=== PATIENT | male | born 1955 | race Two or more races ===

== ENCOUNTER 2016-07-03 11:00 | Inpatient (IN) | payer MEDICAID ==
[~2016-07-03] VITALS: Ht 170.2 cm; Wt 132.2 kg
--- NOTE | ~2016-07-03 | CATH ---
Cardiac Diagnostic Report Demographics Patient Name ROBERT Zhao Gender Male Date of 1955 Age 60 year(s) Patient Number [id number] Date of Study 07/04/2016 Visit Number [id number] Room Number G6[address] [place] [id number] Ht 170.18 cm Wt 137.6 kg Referring Efstratiou Primary Physician Physician Rodney Mayfield MD Performing Efstratiou Secondary Physician Physician Rodney Mayfield MD Diagnostic Efstratiou Assisting Physician Physician Rodney Mayfield MD Interventional Physician Crushing Foreman Physician Findings and Conclusions Diagnostic Findings and Conclusion Patent grafts Occluded [place] vessels Severe cardiomyopathy Moderate pulmonary hypertension Markedly elevated wedge EF 10-15% . Markedly dilated LV Diagnostic Recommendations Medical therapy Lifevest/ICD Procedure Description The patient was brought to the diagnostic cardiac catheterization-EP laboratory in the fasting, non-sedated state. Informed consent was obtained in the written and verbal form after the risks and benefits were explained. The patient had no further questions and agreed to proceed. The planned puncture-incision site(s) were shaved and prepped with ChloraPrep and draped in the usual sterile manner. Conscious sedation, supplemental oxygen, and pain control medications were delivered by a registered nurse under physician guidance. Surface ECG rhythm, blood pressure measurement, and pulse oximetry were monitored throughout the procedure. Arterial access. The access site was infiltrated with lidocaine. The vessel was entered with the Seldinger technique. A sheath was advanced into the vessel and used for catheter placement. Selective left coronary angiography. A catheter was advanced into the left coronary vessel ostium under Fluoroscopic guidance. Contrast was injected by hand. Images were obtained in multiple projections. Selective right coronary angiography. A catheter was advanced into the right coronary vessel ostium under fluoroscopic guidance. Contrast was injected by hand. Images were obtained in multiple projections. Selective LAW graft angiography. A catheter was advanced into the left internal mammary graft ostium under fluoroscopic guidance. Contrast was injected by hand. Images were obtained in multiple projections. Selective SVG angiography. A catheter was advanced into the graft proximal anastomosis under fluoroscopic guidance. Contrast was injected by hand. Images were obtained in multiple projections. Left heart catheterization with ventriculography. A catheter was advanced across the aortic valve to the left ventricle under fluoroscopic guidance. Resting hemodynamics were obtained. With the catheter at the left ventricular apex, contrast was injected. Images were obtained in TURKISH projections. Post-ventriculography LV pressure was obtained. The catheter was gradually withdrawn into the aorta with continuous pressure recording. Arterial artery hemostasis. Hemostasis was achieved. The patient was transferred to a regular nursing floor via cart accompanied by a nurse. The patient left the laboratory in stable condition. Diagnostic Cath Status: Urgent Procedure Procedure Type Diagnostic procedure:Ventriculogram:, Left, Angiography:, Coronary Angios, RHC/LHC w/Grafts Indications: New onset CHF and History of CABG. The procedure was explained in detail to the patient. Risks, complications and alternative treatments were reviewed. Written consent was obtained. Medications Reviewed with Patient prior to Procedure. Angiographic Findings Dominance: Right Cardiac Arteries and Lesion Findings LMCA: Abnormal. Lesion on LMCA: Proximal subsection.20% stenosis . LAD: Abnormal. Lesion on Prox LAD: Ostial.100% stenosis . LCx: Abnormal. Lesion on Prox CX: 95% stenosis . RCA: Abnormal. Lesion on Prox RCA: Distal subsection.100% stenosis . Cardiac Grafts - There is a Vein graft that originates at the Aorta Right and attaches to the R PDA (The SVG graft is patent. Fills PLB as well). - There is a Vein graft that originates at the Aorta Left and attaches to the 1st Ob Renetta (The SVG graft is patent. Fills whole circumflex system.). - There is a Vein graft that originates at the Aorta Left and attaches to the 1st Diag (The SVG graft is occluded.). - There is a LAW graft that originates at the LAW and attaches to the Mid LAD (The LAW graft is patent.). Coronary Tree Procedure Data Procedure Date Date: 07/04/2016Start: 09:09 AMEnd: 10:05 AM Entry Locations - Antegrade Percutaneous access was performed through the Right Femoral vein. A 6 Fr sheath was inserted. Hemostasis was successfully obtained using Manual Compression. Closure Comments: ty. - Retrograde Percutaneous access was performed through the Right Femoral artery (Primary location). A 6 Fr sheath was inserted. Hemostasis was successfully obtained using Angio-Seal STS PLUS (St. Cirilo). Closure Comments: DR. Carballo placed. Procedure Medications Order and Administration + + +-------+------+ !Time !Medication !Dosage !Route ! + + +-------+------+ !07/04/2016 09:09 AM !Fentanyl !25 mcg !I.V. ! + + +-------+------+ !07/04/2016 09:19 AM !Versed !0.5 mg !I.V. ! + + +-------+------+ Devices Used - A6 Fr. Balloon Wedge Catheterwas used for:Right heart cath. - A6 Fr. BS JL 3.5 Diag. Catheterwas used for:Left coronary angiography. - A6 Fr. BS JR 4 Diag. Catheterwas used for:Right coronary angiography. - A6 Fr. BS IMT Diag. Catheterwas used for:LAW. - A6 Fr. BS Angled Pigtail Diag. Catheterwas used for:Left ventriculography. Contrast Material - Isovue [id number] ml Fluoroscopy Time: Diagnostic: 9:54 minutes. Total: 9:54 minutes. Fluoroscopy Dose: Diagnostic: 1755 mGy. Total: 1755 mGy. Estimated Blood Loss: 15 ml. Medical History Performed Procedures and Imaging Results - No ACC stress or imaging studies were performed. Allergies - Antibiotics:(ceftiaxone). Risk Factors The patient risk factors include: prior CABG on 09/12/2004;hypertension, family history of premature CAD, last creatinine: 1 mg/dl, creatinine clearance: 156.71 ml/min, dyslipidemia, former tobacco use and prior heart failure . Admission Data Admission Date: 07/03/2016 Admission Time: 11:35 AM Admit Source: [facility] Insurance Payors: None. Admission Medications + +------+------+ + + + + !Medication !Dosage!Times !Last !Last !Administered !Comments ! ! ! !Per !Delivery !Delivery ! ! ! ! ! !Day !Date !Time ! ! ! + +------+------+ + + + + !Beta Shravan! ! ! ! !Yes ! ! !(any) ! ! ! ! ! ! ! + +------+------+ + + + + !Statin (any)! ! ! ! !Yes ! ! + +------+------+ + + + + !JENNIFER ! ! ! ! !Yes ! ! !Inhibitor ! ! ! ! ! ! ! !(any) ! ! ! ! ! ! ! + +------+------+ + + + + Clinical Evaluation Leading to Procedure - There were no CAD presentation symptoms. - There were no anginal symptoms. Anti-anginal medications were prescribed during the past two weeks. The medication is: Beta Blockers. - The patient has been in a state of heart failure within the past two weeks. - The patient's heart failure status was assessed as NYHA Class IV, with CHF symptoms of BERNAL. - The reason for the patient's technology lab teacher visit is evaluation of cardiomyopathy and/or evaluation of left ventricular systolic dysfunction. Snapshots Hemodynamics Condition: Rest O2 Consumption: Estimated: 293.85Heart Rate: 81 bpm Oxygen Saturation +--------+-----+----+ +---+ + !Location!pCO2 !pO2 !% Saturation !Hgb!O2 Content ! +--------+-----+----+ +---+ + !RA ! ! !61.2 ! ! ! +--------+-----+----+ +---+ + !PA ! ! !62.8 ! ! ! +--------+-----+----+ +---+ + !AO ! ! !90.5 ! ! ! +--------+-----+----+ +---+ + Pressures (mmHg) +-----+ + !Site !Pressure ! +-----+ + !RA !10/02 (7) ! +-----+ + !RV !46/3 ,7 ! +-----+ + !PCW ! (29) ! +-----+ + !PA !45/15 (27) ! +-----+ + !PA !49/21 (31) ! +-----+ + !PA !47/15 (29) ! +-----+ + !AO !125/80 (99) ! +-----+ + !AO !129/85 (104) ! +-----+ + !LV !131/8 ,41 ! +-----+ + !LV !136/2 ,26 ! +-----+ + !LV !127/4 ,21 ! +-----+ + !AO !129/79 (99) ! +-----+ + !LV !127/4 ,23 ! +-----+ + Cardiac Output +------+ + + + !Method!CO (l/min) !CI (l/min/m2) !SV (ml) ! +------+ + + + !Oly !5.24 !2.2 !64.98 ! +------+ + + + Valve Gradients and Areas + +--------+--------+--------+---------+ + + !Valve !Peak !Mean !Area !Index !Flow !Source ! + +--------+--------+--------+---------+ + + !Aortic !1 !0 ! ! !344.06 !Oly ! + +--------+--------+--------+---------+ + + !Aortic !1 !0 ! ! ! ! ! + +--------+--------+--------+---------+ + + Shunts Oxygen Values O2 Capacity 202.64 O2 Consumption 293.85 Flows (l/min) Qs 4.95 Qe/Qp 0.94 Qp 5.24 Qp/Qs 1.06 Qe 4.95 Vascular Resistance (dynes x sec x cm-5) + +-----+-----+----+---+---------+-------+ !CO method !TSVR !SVR !TPVR!PVR!TPVR/TSVR!PVR/SVR! + +-----+-----+----+---+---------+-------+ !Oly !18.93!17.51!5.53! !0.29 ! ! + +-----+-----+----+---+---------+-------+ !Qp or Qs !20.04!18.54!5.53! !0.28 ! ! + +-----+-----+----+---+---------+-------+ Signatures dtt: Mick Carballo dtd: 07/04/16 0909 Physician Self Edit
--- NOTE | ~2016-07-03 | DS ---
PATIENT'S NAME: EDMOND JONES [facility] AGE: 60 Y [address] ROOM: [address] [place], [place] [address] LOCATION: GPCU ADMIT DATE: 07/03/2016 Discharge Summary DISCHARGE DATE: 07/07/2016 FAMILY PHYSICIAN: Physician, Unknown ATTENDING PHYSICIAN: Mick Carballo PRIMARY DISCHARGE DIAGNOSIS: Nonsustained ventricular tachycardia. SECONDARY DISCHARGE DIAGNOSES: 1. Acute systolic congestive heart failure. 2. Severe cardiomyopathy. 3. Coronary artery disease with a history of coronary artery bypass grafting. PROCEDURES: Selective coronary angiography without need for percutaneous intervention along with right and left heart catheterization. HOSPITAL COURSE: This is a 60-year-old male who was transferred from [place], [place] with a nonsustained ventricular tachycardia. Please see history and physical for full details of admission. He was started on intensive medications including Lasix, beta-millie, JENNIFER inhibitor, and Lipitor due to him having no noted treatment after his coronary artery bypass grafting. Plan was to proceed with heart catheterization the following morning. On 07/04/2016, he underwent a selective coronary angiography without need for percutaneous intervention as well as a right and left heart catheterization. Please see the cath report for full details of findings. This procedure was performed through the right femoral artery as well as right venous access. After catheterization, he was transferred to the Progressive Care Unit for continued monitoring of his procedure site as well as postprocedure EKG and vital signs. An order was placed at that time for a LifeVest due to the newly decreased ejection fraction of 15-20% as well as his known history of NSVT. He was also started on Entresto 49/51 mg p.o. twice daily. On 07/05/2016, his right groin remained soft and he continued working with cardiac rehab. On 07/06/2016, continued to await coverage for LifeVest payment, but he continued to have stable hemodynamics with no recurrences of VT. On 07/07/2016, he was found to be in stable condition and discharged to home with a LifeVest in place. DIAGNOSTICS: Cardiac enzyme evaluation on admission showed a CPK of 312, CK- MB of 4.8, and troponin I of 0.185. Renal function remained with a GFR greater than 60 the entire hospitalization. Lipid evaluation showed a total cholesterol of 170, triglycerides 143, HDL of 37, and LDL of 28. DISCHARGE ORDERS: The patient is discharged to home with a cardiac diet of low fat, low salt, and low cholesterol. He does have a 10-pound weight PATIENT'S NAME: EDMOND JONES [facility] AGE: 60 Y [address] ROOM: [place] [address] LOCATION: GPCU ADMIT DATE: 07/03/2016 Discharge Summary DISCHARGE DATE: 07/07/2016 FAMILY PHYSICIAN: Physician, Unknown ATTENDING PHYSICIAN: Mick Carballo restriction for 1 week. He is to follow up with a primary care provider in 1 week after he establishes a primary care provider, which is of utmost importance. He is going to follow up with Dr. Carballo in [place] in 2 weeks with a BMP, magnesium, proBNP, and EKG. He is given post catheterization teaching and restrictions and is to follow at outpatient cardiac rehab. DISCHARGE MEDICATIONS: 1. Lipitor 80 mg p.o. daily at bedtime. 2. Coreg 12.5 mg p.o. twice daily. 3. Lasix 40 mg p.o. daily. 4. Levaquin 500 mg p.o. daily, to be ended on 07/09/2016. 5. Nicoderm patch 21 mg transdermally daily. 6. Protonix 40 mg p.o. daily. 7. Entresto 49/51 mg p.o. twice daily, the patient was given sample medications and discount card for Entresto. 8. Tylenol 1000 mg p.o. every 6 hours as needed for pain, not to exceed 4000 mg of Tylenol in 24-hour period. 9. Mylanta 20 mL p.o. every 6 hours as needed for GERD. 10. Albuterol sulfate inhaled 4 times daily. DISPOSITION: The patient is discharged to home in stable condition. He is given his discharge instructions including activity and diet restrictions as well as followup appointments, new medications, and prescriptions. MEAGAN MCGRATH APRN FOR MD [employer] NEVAREZ/capo /[id number] d: 07/14/16 0346 t: 07/17/16 1826, DISCHARGE SUMMARY
--- NOTE | ~2016-07-03 | HP ---
PATIENT'S NAME: EDMOND JONES [facility] AGE: 60 Y [address] ROOM: [place] [address] LOCATION: GPCU ADMIT DATE: 07/03/2016 History & Physical DISCHARGE DATE: FAMILY PHYSICIAN: PHYSICIAN, UNKNOWN ATTENDING PHYSICIAN: Mick Carballo DATE OF SERVICE: HISTORY OF PRESENT ILLNESS: This is a 60-year-old male who initially presented to [facility] in [place] with complaints of shortness of breath. Echocardiogram there showed a decreased ejection fraction of 15% to 20%, and plan was made to transfer him to [facility] for higher level of cardiology care and evaluation. He had a previous admission to [facility] in March of 2016 for bronchitis and pneumonia. He states he has continued to have troubles with shortness of breath and chest heaviness as well as productive cough with green and yellow sputum. He has also had increased lower extremity edema. His past medical history is positive for coronary artery bypass grafting x4 vessels in 2003. A fractured right wrist. Tuberculosis as a child. He has a smoking history of half a pack per day for the last 46 years. He has complaints of heartburn and a previous umbilical hernia as well as kidney stones. Difficulty emptying his bladder, nocturia, anxiety and depression. Other significant family history includes his mother having heart disease and dying of a cardiac arrest at the age of 68. There is no noted history of alcohol or illicit drug use. Along with a decreased ejection fraction and increased swelling, there also appears to be some signs of nonsustained ventricular tachycardia. PAST MEDICAL HISTORY: As listed in the HPI. PAST SURGICAL HISTORY: As listed in the HPI. FAMILY HISTORY: As listed in the HPI. SOCIAL HISTORY: As listed in the HPI. HOME MEDICATIONS: 1. Tylenol 1000 mg p.o. every 6 hours as needed for pain. 2. Albuterol sulfate inhaled 4 times daily as needed for shortness of breath. 3. Lasix 20 mg p.o. daily. PATIENT'S NAME: EDMOND JONES [facility] AGE: 60 Y [address] ROOM: [place] [address] LOCATION: GPCU ADMIT DATE: 07/03/2016 History & Physical DISCHARGE DATE: FAMILY PHYSICIAN: PHYSICIAN, UNKNOWN ATTENDING PHYSICIAN: Mick Carballo 4. Ibuprofen 600 mg p.o. every 6 hours as needed for pain. 5. Levaquin 500 mg p.o. daily x10 days. Started on 06/30/2016, to be ended on 07/09/2016. MEDICATION ALLERGIES: Rocephin causing difficulty breathing and throat swelling. REVIEW OF SYSTEMS: Pertinent positive review of systems are listed in the HPI. All other review of systems evaluated and negative. PHYSICAL EXAMINATION: VITAL SIGNS: Temperature 98.4, pulse 90, respirations 20, blood pressure 148/94, and O2 saturation 97% on room air. The patient weighs 138.2 kg. SKIN: Normal for race and warm and dry. EYES: Sclerae clear. No xanthelasmas. ENT: Oral mucosa is pink and moist. No jugular venous distention or carotid bruits. CHEST: Respirations are even and slightly labored. Lung sounds are diminished to bilateral lower lobes. HEART: Regular rate and rhythm. Normal S1 and S2. ABDOMEN: Soft and nontender but obese. EXTREMITIES: Peripheral pulses palpable. No clubbing or cyanosis noted. Does have moderate lower extremity edema present. PSYCHIATRIC: Alert and oriented. Mood and affect are appropriate. IMPRESSION AND PLAN: Per Dr. Carballo: 1. Nonsustained ventricular tachycardia. 2. Acute systolic congestive heart failure with fluid overload. 3. Previous coronary artery disease with coronary artery bypass grafting. 4. Obesity. Plan will be to start proper heart failure medications due to him not having any treatment since his coronary artery bypass grafting. We will start Lasix, Coreg, enalapril, atorvastatin, and Lovenox. We will plan to proceed with a selective coronary angiography to fully evaluate coronary anatomy and perfusion. We will continue to monitor, evaluate, and treat as appropriate. Thank you for allowing [facility] to interact in the care of this patient. MEAGAN MCGRATH APRN FOR MICK CARBALLO MD PATIENT'S NAME: EDMOND JONES [facility] AGE: 60 Y [address] ROOM: [place] [address] LOCATION: [facility] ADMIT DATE: 07/03/2016 History & Physical DISCHARGE DATE: FAMILY PHYSICIAN: PHYSICIAN, UNKNOWN ATTENDING PHYSICIAN: Mick Carballo /[id number] D: [id number] T: [id number] HISTORY & PHYSICAL
[2016-07-03] MEDS ORDERED: ALBUTEROL1.25 MG/3 INH (13:28)
[2016-07-03] MEDS ORDERED: LASIX20 MG PO (13:28)
[2016-07-03] MEDS ORDERED: IBUPROFEN200 MG PO (13:29)
[2016-07-03] MEDS ORDERED: LEVAQUIN500 MG PO (13:29)
[2016-07-03] MEDS ORDERED: TYLENOL EXTRA500 MG PO (13:30)
[2016-07-04 04:29] LABS: BASOPHIL % 0.1 %; EOSINOPHIL # 0.1 K/uL (0.0-0.5); EOSINOPHIL % 1.1 %; HEMATOCRIT 43.6 % (37.0-53.0); HEMOGLOBIN 14.9 g/dL (12.0-17.0); IMMATURE GRANULOCYTE % 0.4 %; LYMPHOCYTE # 2.2 K/uL (0.8-4.0); LYMPHOCYTE % 29.8 %; MCH 31.6 pg (27.0-34.0); MCHC 34.2 gm/dL (32.0-36.5); MCV 92.4 fl (83.0-98.0); MONOCYTE # 0.5 K/uL (0.0-1.0); MONOCYTE % 6.7 %; MPV 9.6 fl (9.4-12.4); NEUTROPHIL # (ANC) 4.6 K/uL (1.4-9.0); NEUTROPHIL % 61.9 %; NRBC % 0 /100WBC (0-0.00); PLATELET COUNT 252 K/uL (150-450); RBC 4.72 M/uL (4.00-6.00); RDW-CV 14.7 % (11.9-14.6); WBC 7.4 K/uL (4.0-11.0)
[2016-07-04 04:36] LABS: INR - (THERAPEUTIC) 1.08 (0.92-1.07); PROTIME 11.3 SECONDS (9.8-11.4); PTT 29 SECONDS (25-32)
[2016-07-04 04:44] LABS: ALBUMIN 3.2 gm/dL (3.5-5.0); ALK PHOS 74 IU/L (33-138); ALT 39 IU/L (12-78); AST 23 IU/L (10-40); BLOOD UREA NITROGEN 33 mg/dL (6-24); CALCIUM 8.2 mg/dL (8.5-10.5); CHLORIDE 111 mMol/L (96-110); CO2 22 mMol/L (22-32); ESTIMATED GFR (MDRD EQUATION) > 60; SODIUM 144 mMol/L (135-145); TOTAL BILIRUBIN 1.1 mg/dL (0.0-1.5); TOTAL PROTEIN 7.3 g/dL (6.0-8.4)
[2016-07-05 11:28] LABS: ANION GAP 13.2 (10.0-19.0); BLOOD UREA NITROGEN 30 mg/dL (6-24); CHLORIDE 108 mMol/L (96-110); CO2 24 mMol/L (22-32); CREATININE 0.9 mg/dL (0.6-1.3); ESTIMATED GFR (MDRD EQUATION) > 60; MAGNESIUM 2.5 mg/dL (1.8-2.6); POTASSIUM 4.2 mMol/L (3.7-5.1); SODIUM 141 mMol/L (135-145)
[2016-07-07 04:11] LABS: ANION GAP 11.1 (10.0-19.0); BLOOD UREA NITROGEN 23 mg/dL (6-24); CALCIUM 8.7 mg/dL (8.5-10.5); CHLORIDE 109 mMol/L (96-110); CO2 24 mMol/L (22-32); CREATININE 0.9 mg/dL (0.6-1.3); ESTIMATED GFR (MDRD EQUATION) > 60; POTASSIUM 4.1 mMol/L (3.7-5.1); SODIUM 140 mMol/L (135-145)
[2016-07-07] MEDS ORDERED: LIPITOR80 MG PO (14:53)
[2016-07-07] MEDS ORDERED: COREG25 MG PO (14:54)
[2016-07-07] MEDS ORDERED: LASIX40 MG PO (14:54)
[2016-07-07] MEDS ORDERED: LEVAQUIN500 MG PO (14:56)
[2016-07-07] MEDS ORDERED: NICODERM / HABIT7 MG TRANS (14:58)
[2016-07-07] MEDS ORDERED: PROTONIX40 MG PO (14:59)
[2016-07-07] MEDS ORDERED: ENTRESTO 49 MG1 EACH PO (15:00)
[2016-07-07] MEDS ORDERED: MYLANTA (MAG-AL30 ML PO (15:04)
[2016-10-29] MEDS ORDERED: ASPIRIN (CHILDR81 MG PO (13:42)
[2016-11-06] MEDS ORDERED: NORCO 5-325 TA1 EACH PO (10:19)
== END 2016-07-07 19:30 | disposition disaster alternative care site (69) | DRG 286 ==
LOC: GPCU 11:35
PROVIDERS: Nurse Practitioner; ADMIT Internal Medicine Cardiovascular Disease
DX: I47.2 Ventricular tachycardia (principal); I50.21 Acute systolic (congestive) heart failure; Z68.42 Body mass index [BMI] 45.0-49.9, adult; E66.01 Morbid (severe) obesity due to excess calories; I42.9 Cardiomyopathy, unspecified; F41.9 Anxiety disorder, unspecified; I25.10 Atherosclerotic heart disease of native coronary artery without angina pectoris; Z87.891 Personal history of nicotine dependence; Z95.1 Presence of aortocoronary bypass graft; Z23 Encounter for immunization
CPT/HCPCS: C1760; G0009; J1644; J1650; J1940; J2250; J3010; J7030

== ENCOUNTER → 2016-09-14 | Outpatient (CLI) | payer MEDICAID ==
[~2016-09-14] MED LIST: ALBUTEROL1.25 MG/3 INH; ASPIRIN (CHILDR81 MG PO; COREG25 MG PO; ENTRESTO 49 MG1 EACH PO; IBUPROFEN200 MG PO; LASIX20 MG PO; LASIX40 MG PO; LEVAQUIN500 MG PO; LIPITOR80 MG PO; MYLANTA (MAG-AL30 ML PO; NICODERM / HABIT7 MG TRANS; NORCO 5-325 TA1 EACH PO; PROTONIX40 MG PO; TYLENOL EXTRA500 MG PO
== END ==
LOC: LNHI 17:11
DX: I50.9 Heart failure, unspecified (principal)